=== PATIENT | female | born 1980 | race Asian ===

== ENCOUNTER 2025-08-17 02:20 | Inpatient (IN) | payer SELFPAY ==
[2025-08-17] VITALS (16 sets, daily range): BP systolic 163–198; BP diastolic 96–131; PULSE 76–125; RESP 17–100; TEMP 36.4–37.3; O2SAT 93–100; BMI 35.4; BMI 38.2
--- NOTE | 2025-08-17 | XR_ITS ---
Examinations: MRI Brain without intravenous contrast. MRI brain with intravenous contrast MRA brain with intravenous contrast. MRA brain without intravenous contrast MRA neck with intravenous contrast Date and time of exam: August 17, 2025, 0950 hours INDICATIONS: Stroke alert this AM, onset right-sided body weakness and numbness Technique: Multiple axial and sagittal images of the brain have been obtained Siemens high-resolution 1.5 Natalie short bore scanner is utilized. Sagittal sections, T1-weighted, TR 500, TE 14 Axial sections proton density and T2-weighted, TR 3,000, TE 34, TR 3,000, TE 91 Inversion recovery axial images, TR 9,260, TE 111, TI 2,500 Diffusion weighted images, axial sections, TR 4,800, TE 128, B value 1,000 Axial sections, ADC map, TR 4,800, TE 128. Contrast images have been obtained post intravenous 19 cc Gadolinium. T1-weighted axial and coronal images post contrast have been obtained. Angiographic images of neck and brain are obtained pre and post contrast. 3-D post processing performed, including brain, extracranial neck arterial maximum intensity projections Findings: Sellaturcica is not enlarged. The optic chiasm and infundibular stalk are not remarkable. Prepontine and interpeduncular cisterns are not enlarged. No localized enlargement of the medulla or daina. Fourth ventricle and cerebellar tonsils normal in position. Subacute hemorrhage is not seen. Fourth ventricle is midline. Mass in the cerebellopontine angle region is not evident. 7th and 8th nerve complexes exhibits symmetry. Globes are symmetrical with no retro-orbital mass. Increased white matter signal not seen Diffusion-weighted images demonstrate no focus of restricted diffusion. Mass-effect upon the ventricular system is not identified. Abnormal contrast enhancement is not seen. MRA brain carotid images no carotid stenoses, no cerebral large vessel arterial occlusions Impression: Negative for acute hemorrhage mass effect or midline shift No acute infarct No MR findings diagnostic for demyelinating disease No carotid stenoses No cerebral large vessel arterial occlusions
--- NOTE | 2025-08-17 02:52 | PD.EDRME ---
Rapid Medical Screening Exam RME Arrival date/time: 08/17/25 02:20 Chief Complaint: General Adult/Misc Complain Vital signs: Vital Signs Temperature 99.2 F 08/17/25 02:29 Pulse Rate 125 H 08/17/25 02:29 Respiratory Rate 19 08/17/25 02:29 Blood Pressure 190/131 H 08/17/25 02:29 Pulse Oximetry (%) 96 08/17/25 02:29 Oxygen Delivery Method Room Air 08/17/25 02:29 RME Narrative: 44-year-old healthy female presents to the ER complaining of right sided facial numbness and weakness, as well as right arm and leg numbness and tingling which started an hour prior to arrival. I briefly performed a screening evaluation to initiate work-up and expedite care. Complete history, physical exam, and plan of care is deferred to the provider in the main ED. Exam: Head: Normocephalic, atraumatic. Respiratory: Normal effort. No respiratory distress or accessory muscle use. Neuro: Speech normal. Skin: Warm, dry, normal color. Psych: Pleasant. Normal affect. Cooperative. Clinical Impression: Rule out CVA
--- NOTE | 2025-08-17 02:55 | XR_ITS ---
Examination: CT brain head without contrast. 2-D sagittal coronal reconstructions Date and time of exam: August 17, 2025, 0300 hours INDICATIONS: Onset right-sided body numbness beginning 3 days ago COMPARISON: April 23, 2011 CTDI: vol (mGy): 51.1 DLP: (mGycm): 964 Technique: Multiple CT axial sections of the brain have been obtained, 5 mm slice thickness. Contrast has not been administered. 2-D sagittal, coronal reconstructions have been obtained Low dose protocols were performed. One or more of the following dose reduction techniques were used; automated exposure control, adjustment of the mA and/or KV according to patient size, use of iterative reconstruction technique. Findings: No significant ventricular enlargement. Intra-axial or extra-axial hemorrhage density is not seen. No mass effect or midline shift Basal cisterns are not remarkable. Fourth ventricle is midline. Cranial vault intact. Impression: Negative for acute hemorrhage, mass effect or midline shift As clinically warranted, brain MRI follow-up would best assess for demyelinating disease
--- NOTE | 2025-08-17 02:55 | XR_ITS ---
Examination: CTA carotids with intravenous contrast CTA brain, head with intravenous contrast. 2-D sagittal, coronal reconstructions. 3-D reconstructions. Exam date and time: August 17, 2025, 0310 hours INDICATIONS: Stroke alert, onset right-sided body numbness beginning 3 days ago CTDI: vol (mGy) 11.7 DLP: (mGycm) 448 Technique: Multiple CTA axial brain, head carotid images post intravenous contrast injection 75 cc, Isovue-[id number]. 2-D sagittal, coronal reconstructions. 3-D reconstructions, 3-D post processing including vascular maximum intensity projection images. Low dose protocols were performed. One or more of the following dose reduction techniques were used; automated exposure control, adjustment of the mA and/or KV according to patient size, use of iterative reconstruction technique. Findings: No common carotid carotid bifurcation or internal carotid artery significant stenoses Dominant right vertebral artery in the neck with no critical stenoses No cerebral large vessel arterial occlusions or thrombus IMPRESSION: No significant neck arterial stenoses No cerebral large vessel arterial occlusions or thrombus
--- NOTE | 2025-08-17 02:55 | XR_ITS ---
EXAMINATION: AP chest single view TECHNIQUE: AP portable upright chest single view Date and time: August 17, 2025, 0347 hours, comparison May 30, 2014 INDICATIONS: Stroke alert FINDINGS: Normal heart size No aspiration pneumonia. Lungs are clear. Mild osteopenia. IMPRESSION: Negative for aspiration pneumonia
--- NOTE | 2025-08-17 02:55 | EKG_ITS ---
[facility] Test Date: 2025-08-17 Pat Name: CELESTE DUMONT Department: Room: - Gender: Female Diagram Clerk: : 1980 Requested By: Heriberto Le Order Number: [id number] Reading MD: Heriberto Le Measurements Intervals [place] Rate: 113 P: 38 MN: 112 QRS: 56 QRSD: 89 T: 36 QT: 339 QTc: 466 Interpretive Statements SINUS TACHYCARDIA WITH SHORT MN INTERVAL ABNORMAL RHYTHM ECG No previous ECG available for comparison /store/S0/[id number].pdf
--- NOTE | 2025-08-17 03:14 | EDNOTE_ITS ---
ED General RME/HPI General Chief complaint: General Adult/Misc Complain Stated complaint: RT SIDE NUMBNESS X 3DAYS Time Seen by Provider: 08/17/25 03:09 Arrival date/time: 08/17/25 02:20 RME / HPI RME / HPI narrative: 44-year-old healthy female presents to the ER complaining of right sided facial numbness and weakness, as well as right arm and leg numbness and tingling which started an hour prior to arrival. I briefly performed a screening evaluation to initiate work-up and expedite care. Complete history, physical exam, and plan of care is deferred to the provider in the main ED. Dr. Gordon?s Main ED Evaluation: 44yo female with no significant past medical history presents to the ED for a chief complaint of right-sided weakness and numbness. Patient states her symptoms initially started on Saturday at 0230 when she woke up to use the restroom, reporting her symptoms eventually resolved. Patient states her symptoms returned tonight between [id number] and was concerned, so she came in for evaluation. Patient denies any previous history of HTN. She is not taking any medications. She denies any falls or injuries. Denies any other associated symptoms. NKA. Related Data Home Medications ?Medication ?Instructions ?Recorded ?Confirmed No Known Home Medications 08/05/1803/17 Allergies Allergy/AdvReac Type Severity Reaction Status Date / Time No Known Allergies Allergy Verified 09/16/18 14:31 Review of Systems Review of Systems Systems Reviewed: All systems reviewed, normal except as documented Past Medical History Past Medical History CARDIAC: Negative Cardiac Disorders or Congestive Heart Failure RESPIRATORY: Negative Chronic Obstructive Pulmonary Disease (COPD) or Asthma GENITOURINARY: Negative Renal Disease ENDOCRINE: Negative Diabetes Mellitus Type 1 or Diabetes Mellitus Type 2 HEMATOLOGIC: Negative Sickle Cell Disease Social History SMOKING STATUS: Never smoker ED Exam Narrative Physical exam: Generally the patient is alert and in no obvious distress, face shows no facial asymmetry, eyes pupils equal round and reactive to light, neck showed no bruits, heart regular rate and rhythm without murmur, lungs clear to auscultation equal bilaterally, abdomen soft bowel sounds present nondistended nontender, n eurologic exam shows the patient have 5/5 muscle strength to all extremities however the patient is noticeably weaker on the right when compared to the left. [place] Coma Scale is 15. Course Course Course Narrative: 0251: Stroke alert initiated by the PA. CXR is ordered for determining the etiology of weakness. Quality Measures none Orders Category Date Time Status Bedside Blood Glucose NOW Care 08/17/25 02:55 Active Technical Training Manager NOW Care 08/17/25 02:55 Active Continuous Pulse Oximetry NOW Care 08/17/25 02:55 Completed EKG (ED ONLY) *Do not use* NOW Care 08/17/25 02:55 Completed In and Out Catheter NEEDED Care 08/17/25 02:55 Active Insert IV NOW Care 08/17/25 02:55 Active NIH Stroke Scale now Care 08/17/25 02:55 Active NPO NOW Care 08/17/25 02:55 Active Nurse Swallow Screen x1 Care 08/17/25 02:55 Active Consult to Neurology / Tele-Neurology Routine Cons 08/17/25 02:[address] angio stroke protocol Stat Exams 08/17/25 02:[address] stroke protocol Stat Exams 08/17/25 02:55 Taken EKG (ED Only) Stat Exams 08/17/25 02:55 Draft XR chest 1V portable Stat Exams 08/17/25 02:55 Taken CBC Stat Lab 08/17/25 03:00 Completed Comprehensive Metabolic Panel Stat Lab 08/17/25 03:00 Completed Drug Screen,Urine Stat Lab 08/17/25 03:44 Received HCG Titer if Positive Stat Lab 08/17/25 03:00 Completed Magnesium Stat Lab 08/17/25 03:00 Completed Partial Thromboplastin Time Stat Lab 08/17/25 03:00 Completed Prothrombin Time with INR Stat Lab 08/17/25 03:00 Completed Troponin I Stat Lab 08/17/25 03:00 Completed Urinalysis, C/S if Indicated Stat Lab 08/17/25 03:40 Received Labetalol IV [Trandate IV] Med 08/17/25 02:55 Active 10 mg IVP Q15M PRN Labetalol IV [Trandate IV] Med 08/17/25 03:25 Discontinued 20 mg IVP X1 ONE Ondansetron Inj [Zofran Inj] Med 08/17/25 02:55 Active 4 mg IVP Q4HR PRN Oxygen Delivery NOW RT 08/17/25 02:55 Active Vital Signs Vital signs: Vital Signs Temperature 99.2 F 08/17/25 02:29 Pulse Rate 125 H 08/17/25 02:29 Respiratory Rate 19 08/17/25 02:29 Blood Pressure 190/131 H 08/17/25 02:29 Pulse Oximetry (%) 96 08/17/25 02:29 Oxygen Delivery Method Room Air 08/17/25 02:29 Critical Care Time Critical Care Time Critical Care Time: Yes Total Critical Care Time (min.): 35 Attestation: Excluding other billable procedures Discharge Plan Plan Patient Disposition: Admit Acute Care w/in Hospital Prescriptions/Referrals Prescriptions/Med Rec: No Action No Known Home Medications Referrals: Temporary Provider,ED [Primary Care Provider, Emergency Medicine] - In 1 week Problem List Clinical Impression: Ischemic cerebrovascular accident (CVA), Hypertensive emergency Patient/Caregiver Discharge Instructions Print Language: Sami Stand Alone Forms: [facility] Award Info., Patient Portal Info Letter MDM Narrative MDM hospital course (for use when minimal MDM required): Scribe Attestation: 08/17/25 - Rima Cárdenas am scribing for and in the presence of Dr. Gordon. Symptoms have been on again off again for the last 2 weeks. The most recent start of the right sided weakness with numbness started well over 4-1/2 hours prior to presentation. Patient is not a thrombolytic candidate. Stroke alert was called. Head CT was negative. CT angiogram of the head and neck showed no large vessel occlusion and no aneurysm. Patient is quite hypertensive here in the emergency room with blood pressure in the 190s over 130s range. I discussed this case with the stroke neurologist who recommended getting the diastolic blood pressure down to at least below 120. The systolic blood pressure should be maintained below 220. Patient received labetalol 20 mg IV which brought the blood pressure down to 177/118. Patient will undergo MRI later in the morning. I will discuss his case with the hospitalist and the patient will require admission to hospital for further treatment and evaluation. Patient states that she has no medical problems and was unaware that she had hypertension. Patient will be given aspirin and Plavix here in the emergency room. Clinical Information Provided by: patient Medical Records reviewed [facility] (Per chart review, patient has no relevant previous ED visits.) Meds/Rx considered, not ordered None Labs/Rad/Tests considered, not ordered None Chronic Illness/Social Conditions which may negatively complicate care or outcome(s)-explain: None or not applicable Labs Labs: interpreted by me Imaging Imaging interpretation: interpreted by me Imaging Interpretation(s): Telerad Preliminary Report Draft Patient: CELESTE DUMONT Record#: [id number] Birthdate: 1980 Age/Sex: 44 / F Location: [facility] Attending Dr: Ordering Physician: Date of Service: Procedure(s): Accession Number(s): cc: ~ CT scan of the head without intravenous contrast (axial sections with sagittal and coronal reformats) August 17, 2025 at 0300 hours Clinical History: Focal neuro deficit, stroke suspected. Comparison: None available at the time of this report. Findings: No evidence of intracranial hemorrhage, mass effect or midline shift. The ventricles and CSF spaces are unremarkable. The calvarium is unremarkable. The mastoid air cells and the visualized paranasal sinuses are clear. Impression: No evidence of intracranial hemorrhage, mass effect or midline shift. Aspect score 10. Report Electronically Signed By: Ray Soares 08/17/2025 3:26:33 AM Medication Administration(s) Medication Administration History Labetalol HCl (Labetalol Inj 5 Mg/Ml Vial 20 Ml) 10 mg IVP Q15M PRN PRN Reason: HYPER Ondansetron HCl (Ondansetron Inj 2 Mg/Ml Inj 2 Ml) 4 mg IVP Q4HR PRN PRN Reason: NAUSEA OR VOMITING Stop: 09/16/25 02:54 Discontinued Medications Labetalol HCl (Labetalol Inj 5 Mg/Ml Vial 20 Ml) 20 mg IVP X1 ONE Stop: 08/17/25 03:26 Last Admin: 08/17/25 03:30 Dose: 20 mg Documented By: JONNIE see above Diagnosis Differential Diagnosis ED Complaint MDM: See MDM
--- NOTE | 2025-08-17 03:14 | PD.TNEURO ---
Tele Neuro Consultation Consultation Date 08/17/25 Most Recent Vital Signs Last Vital Signs Temp 98.1 F 08/17/25 03:04 Pulse 110 H 08/17/25 03:10 Resp 18 08/17/25 03:10 BP 198/119 H 08/17/25 03:04 Pulse Ox 100 08/17/25 03:04 O2 Del Method Room Air 08/17/25 03:04 Consultation Narrative [facility] Patient Name:???Singh Gillette Date of :???1980 Identification Number:??? Date of Service:???08/17/2025 02:52:28 Diagnosis:?R44.8 - Other and unspecified symptoms and signs involving general sensations and perceptions Impression: ?44 yo F who presents with right sided numbness and right facial weakness. CT head personally reviewed and does not show hemorrhage or definitive acute developing ischemic stroke. Outside window for thrombolytics. CTA head/neck pending. Differential for presentation would include acute ischemic stroke, hypertensive emergency and migraine with aura also could be playing a role. Pending acute abn's on CTA, would admit for further workup of most likely to be acute stroke vs hypertensive emergency as follows: Our recommendations are outlined below. Recommendations: ? Stroke/Telemetry Floor ? Neuro Checks (Q4) ? Bedside Swallow Eval ?-f/u CTA head/neck ?-frequent neuro checks/vitals during admission ?-Goal blood pressure less than 220/120 for now ? --if symptoms persist and MRI negative - would treat BP with goal of 110-160 at that point ?-Euglycemia and Avoid Hyperthermia (PRN Acetaminophen) ?-obtain MRI brain w/ and w/o contrast (routine) ?-obtain Lipid panel, Hb A1c, TTE with bubble study ?-Place on telemetry ?-Bolus with Clopidogrel 300 mg bolus x1 and initiate dual antiplatelet therapy with Aspirin 81 mg daily and Clopidogrel 75 mg daily ?-Start atorvastatin 40 mg po qhs ?-dvt ppx per primary team ?-trial migraine cocktail as follows: ? --IV Compazine 10 mg ? --IV benadryl 25 mg ? --IV magnesium 2 g ? --IVF bolus per ED physician ?-PT/OT/ST consults - inpatient rehab if recommended ?-Please notify neurology immediately for change in exam Sign Out: ? Discussed with Emergency Department Provider Advanced Imaging:Advanced imaging has been ordered. Results pending. Metrics: Last Known Well: 08/16/2025 21:00:00 Arrival Time: 08/17/2025 02:20:00 Activation Time: 08/17/2025 02:52:28 Initial Response Time: 08/17/2025 02:54:10Symptoms: right facial weakness and right sided numbness. Initial patient interaction: 08/17/2025 02:58:00 NIHSS Assessment Completed: 08/17/2025 03:05:52Patient is not a candidate for Thrombolytic. Thrombolytic Medical Decision: 08/17/2025 03:05:52Patient was not deemed candidate for Thrombolytic because of following reasons: LKW outside 4.[address] Head: I personally reviewed all the CT images that were available to me and it showed: CT head personally reviewed and does not show hemorrhage or definitive acute developing ischemic stroke Primary Provider Notified of Diagnostic Impression and Management Plan on: 08/17/2025 03:13:40 History of Present Illness:Patient is a 44 year old Female. Patient was brought by private transportation with symptoms of right facial weakness and right sided numbness. 44 yo F who presents with right sided numbness and right facial weakness. Per report, patient has had right side weakness since Saturday. Patient she got up to use the restroom on Saturday morning (at about 3 am) and noted right sided numbness/tingling. No weakness noted at that time. Symptoms went away on Saturday, felt to back normal until about 9 to 10 pm tonight when numbness of face/arm/leg on right side came back. [place] a little weak in right leg as well. No loss of vision or double vision currently. No speech changes per patient. Has had headaches the last 2 days but not at current moment. ? Past Medical History: ?Migraine Headaches ?There is no history of Hypertension ?There is no history of Diabetes Mellitus ?There is no history of Atrial Fibrillation ?There is no history of Stroke Other PMH:? no hx of migraine with aura per patient, has regular migraines though Medications: No Anticoagulant use? No Antiplatelet use Reviewed EMR for current medications Allergies:? Reviewed Social History: Smoking: No Family History: There Is Family History Of:mother with hx of stroke ROS : 14 Points Review of Systems was performed and was negative except mentioned in HPI. ? ? Examination: BP(190/131),?Pulse(125),?Blood Glucose(105) 1A: Level of Consciousness - Alert; keenly responsive?+ 0 1B: Ask Month and Age - Both Questions Right?+ 0 1C: Blink Eyes & Squeeze Hands - Performs Both Tasks?+ 0 2: Test Horizontal Extraocular Movements - Normal?+ 0 3: Test Visual Miranda - No Visual Loss?+ 0 4: Test Facial Palsy (Use Grimace if Obtunded) - Normal symmetry?+ 0 5A: Test Left Arm Motor Drift - No Drift for 10 Seconds?+ 0 5B: Test Right Arm Motor Drift - No Drift for 10 Seconds?+ 0 6A: Test Left Leg Motor Drift - No Drift for 5 Seconds?+ 0 6B: Test Right Leg Motor Drift - No Drift for 5 Seconds?+ 0 7: Test Limb Ataxia (FNF/[place]el[place]) - No Ataxia?+ 0 8: Test Sensation - Normal; No sensory loss?+ 0 9: Test Language/Aphasia - Normal; No aphasia?+ 0 10: Test Dysarthria - Normal?+ 0 11: Test Extinction/Inattention - No abnormality?+ 0 NIHSS Score:?0 NIHSS Free Text :?keeps both legs up without drift at 5 seconds but requires more effort to keep up without drift with right leg Pre-Morbid Modified Shannan Scale: 0 Points = No symptoms at all Spoke with :?ED provider Dr. Gordon This consult was conducted in real time using interactive audio and video technology. Patient was informed of the technology being used for this visit and agreed to proceed. Patient located in hospital and provider located at home/office setting. Patient is being evaluated for possible acute neurologic impairment and high probability of imminent or life-threatening deterioration. I spent total of 25 minutes providing care to this patient, including time for face to face visit via telemedicine, review of medical records, imaging studies and discussion of findings with providers, the patient and/or family. Dr Darien Solorio [facility] For Inpatient follow-up with [facility] physician please call [facility] at . As we are not an outpatient service for any post hospital discharge needs please contact the hospital for assistance. If you have any questions for the [facility] physicians or need to reconsult for clinical or diagnostic changes please contact us via [facility] at . Non-radiologist review of imaging performed to assist with emergent clinical decision-making. Remote physician workstations do not possess the same resolution, calibration, or diagnostic capabilities as hospital-based radiology reading stations, and formal radiologist read is necessary. Signature :Nathen Solorio ?
[2025-08-17 03:20] LABS: Basophils # (Auto) 0.1 Thou/mm3 (0.0-0.2); Basophils % (Auto) 1 % (0-2.5); Eosinophils # (Auto) 0.7 Thou/mm3 (0.0-0.5); Eosinophils % (Auto) 5 % (0-10); Hematocrit 39.4 % (36.0-46.0); Hemoglobin 11.6 g/dL (12.0-16.0); Immature Granulocytes Auto 0.06 Thou/mm3 (0.00-0.00); Lymphocytes # (Auto) 2.6 Thou/mm3 (1.0-4.8); Lymphocytes % (Auto) 20 % (10-50); Mean Corpuscular HGB Conc 29.4 g/dl (31.0-37.0); Mean Corpuscular Hemoglobin 20.4 pg (25.0-35.0); Mean Corpuscular Volume 69 fL (80-100); Monocytes # (Auto) 0.9 Thou/mm3 (0.0-0.8); Monocytes % (Auto) 7 % (0-12); Neutrophils # (Auto) 8.9 Thou/mm3 (1.8-7.7); Neutrophils % (Auto) 67 % (37-80); Nucleated Red Blood Cell # 0.00 Thou/mm3 (0.00-0.00); Nucleated Red Blood Cell % 0 /100 WBC (0); Platelet Count 394 Thou/mm3 (140-440); RDW Standard Deviation 41.1 fL (36.4-46.3); Red Blood Count 5.68 Miln/mm3 (4.00-5.20); White Blood Count 13.3 Thou/mm3 (3.6-11.0)
[2025-08-17 03:25] LABS: INR 0.9 (0.9-1.3); Partial Thromboplastin Time 29.9 Seconds (22.0-36.0); Prothrombin Time 10.1 Seconds (9.0-12.2)
--- NOTE | 2025-08-17 03:27 | PRELIM_ITS ---
CT scan of the head without intravenous contrast (axial sections with sagittal and coronal reformats) August 17, 2025 at 0300 hours Clinical History: Focal neuro deficit, stroke suspected. Comparison: None available at the time of this report. Findings: No evidence of intracranial hemorrhage, mass effect or midline shift. The ventricles and CSF spaces are unremarkable. The calvarium is unremarkable. The mastoid air cells and the visualized paranasal sinuses are clear. Impression: No evidence of intracranial hemorrhage, mass effect or midline shift. Aspect score 10. Report Electronically Signed By: Ray Soares 08/17/2025 3:26:33 AM [EST]
[2025-08-17] MEDS: LABETALOL INJ 5 MG/ML VIAL 20 ML 20 MG IVP (03:30)
[2025-08-17 03:39] LABS: HCG Titer if Positive Negative
[2025-08-17 03:56] LABS: Collection Type, Urine Voided
[2025-08-17 03:57] LABS: Alanine Aminotransferase 11 U/L (10-49); Albumin, Serum 4.4 gm/dL (3.5-5.0); Albumin/Globulin Ratio 1.5 (1.2-2.2); Alkaline Phosphatase 113 U/L (46-116); Anion Gap 9 (7-16); Aspartate Amino Transferase 17 U/L (0-34); BUN/Creatinine Ratio 9 Ratio (12-20); Bilirubin,Total < 0.2 mg/dL (0.3-1.2); Blood Urea Nitrogen 9 mg/dL (9-23); Calcium 8.7 mg/dL (8.3-10.6); Calcium (Corrected) 8.7 mg/dL (8.5-10.1); Carbon Dioxide 24.6 mMol/L (20.0-31.0); Chloride 110 mMol/L (98-107); Creatinine (Component) 1.0 mg/dL (0.6-1.3); Estimated Creatinine Clearance 77.6 mL/min (>60); Globulin 2.9 gm/dL (2.3-3.5); Glucose 118 mg/dL (74-106); Magnesium 1.8 mg/dL (1.6-2.6); Osmolality,Calculated 286 (275-295); Potassium 3.4 mMol/L (3.4-5.1); Sodium 144 mMol/L (136-145); Total Protein 7.3 gm/dL (5.7-8.2); Troponin I < 0.020 ng/mL (0.0-0.045); eGFR > 60 See Note
--- NOTE | 2025-08-17 04:03 | PRELIM_ITS ---
CT angiogram of the head and neck with intravenous contrast (axial sections with sagittal and coronal reformats) August 17, 2025 0310 hours Clinical History: Focal neuro deficit, stroke suspected. Comparison: CT of August 17, 2025. Findings: Head: The internal carotid, middle and anterior cerebral arteries are patent bilaterally. The intracranial vertebral arteries are patent. The vertebrobasilar junction, basilar and posterior cerebral arteries are patent. No evidence of large vessel occlusion, critical stenosis or aneurysm. Neck: The aortic arch to the extent visualized as well as the origins of the right brachiocephalic, left common carotid, and left subclavian arteries are patent. The common carotid arteries, carotid bulbs, and internal and external carotid arteries are patent. The origins of the vertebral arteries are unremarkable. The right vertebral artery is dominant. No evidence of vascular occlusion, critical stenosis, dissection or aneurysm. The soft tissues of the neck are unremarkable. No acute fractures. Loss of the physiologic cervical lordosis. Impression: Head: No evidence of large vessel occlusion, critical stenosis or aneurysm. Neck: No evidence of vascular occlusion, critical stenosis, dissection or aneurysm. Discussion Details: Results verbally communicated to : Dr. Gordon at 03:56 AM 08/17/2025 Report Electronically Signed By: Ray Soares 08/17/2025 4:03:18 AM [EST]
[2025-08-17 04:10] LABS: Bilirubin,Urine Negative (Negative); Blood,Urine 3+ (Negative); Clarity,Urine Clear (Clear/Hazy); Color,Urine Colorless (Lt Yel-Yel); Culture Indicated,Urine Not Indicated; Glucose, Urine Negative (Negative); Ketones,Urine Negative (Negative); Leukocyte Esterase,Urine Positive (Negative); Nitrite,Urine Negative (Negative); PH,Urine 7.5 (5.0-7.0); Protein,Urine Trace (Neg - Trace); RBC,Urine 685 /hpf (0-3); Squamous Epithelial Cell,Urine 7 /hpf (0-5); Urobilinogen,Urine Negative mg/dL (0.0-1.0); WBC,Urine 8 /hpf (0-5)
[2025-08-17 04:11] LABS: Specific Gravity,Urine > 1.035 (1.001-1.035)
[2025-08-17 04:11] LABS: Amphetamine/Methamp Scrn,U Negative (Negative); Barbiturate Screen,Urine Negative (Negative); Benzodiazepines Screen,Urine Negative (Negative); Benzoylecgonine Screen, Ur Negative (Negative); Fentanyl Screen,Urine Negative (Negative); Opiate Screen,Urine Negative (Negative); THC Screen,Urine Negative (Negative)
[2025-08-17] MEDS: CLOPIDOGREL BISULFATE 75 MG TABLET PO ×2 (04:18→08:24)
--- NOTE | 2025-08-17 05:11 | ECHO_ITS ---
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 Saline: Agitated Saline Amount: --- ml Primary Location: [facility] Left Ventricular Outflow Tract Name Value Normal LVOT 2D LVOT Diameter 1.9 cm LVOT Doppler LVOT Peak Velocity 142 cm/s LVOT Mean Gradient 4 mmHg LVOT VTI 27 cm LVOT VTI/AV VTI Ratio 0.8 LVOT Stroke Volume 78 ml Pulmonic Valve Name Value Normal PV Doppler PV Peak Velocity 102 cm/s Mitral Valve Name Value Normal MV Doppler MV Decel [place] 871 cm/s2 MV PHT 38 ms MV Area (PHT) 5.8 cm2 4.0-5.0 MV Diastolic Function MV E Peak Velocity 114 cm/s MV A Peak Velocity 105 cm/s MV E/A 1.1 MV Annular TDI MV Septal e' Velocity 8.8 cm/s MV E/e' (Septal) 12.9 MV Lateral e' Velocity 10.3 cm/s MV E/e' (Lateral) 11.1 MV e' Average 9.56 cm/s MV E/e' (Average) 12.0 Tricuspid Valve Name Value Normal TV Regurgitation Doppler TR Peak Velocity 176 cm/s Estimated PAP/RSVP RA Pressure 3 mmHg <=5 PA Systolic Pressure 15 mmHg <36 RV Systolic Pressure 15 mmHg <36 Aortic Valve Name Value Normal AV 2D/MM AV Cusp Sep (MM) 1.3 cm AV Doppler AV Peak Velocity 154 cm/s AV Mean Gradient 6 mmHg AV VTI 33 cm AV Area (Cont Eq VTI) 2.3 cm2 >=3.0 AV Area (Cont Eq Sudeep) 2.6 cm2 AV DI (Sudeep) 0.92 AV Regurgitation 2D LVOT Area 2.8 cm2 Ventricles Name Value Normal LV Dimensions 2D/MM IVS Diastolic Thickness (2D) 0.9 cm 0.6-0.9 LVID Diastole (2D) 3.8 cm 3.8-5.2 LVIW Diastolic Thickness (2D) 0.9 cm 0.6-0.9 LVID Systole (2D) 2.3 cm 2.2-3.5 LVOT Diameter 1.9 cm LV Mass (2D Cubed) 101.06 g 67.00-162.00 LV Mass Index (2D Cubed) 49 g/m2 43-95 Relative Wall Thickness (2D) 0.47 <=0.42 IVS/LVIW Diastolic Thickness (2D) 1.00 0.00-1.50 LV Fractional Shortening/Ejection Fraction 2D/MM LV Fractional Shortening (2D) 39 % 27-45 LV EF (2D Teichholz) 71 % Atria Name Value Normal LA Dimensions LA Volume (4C A-L) 54 ml LA Volume (BP A-L) 49 ml Left Ventricle Left ventricular chamber dimension is normal. Left ventricular systolic function is normal with visually estimated ejection fraction of 60-65%. There is concentric remodeling noted in the left ventricle. Left ventricular segmental wall motion is normal. There is normal diastolic function in the left ventricle. Right Ventricle Right ventricular chamber dimension is normal. Right ventricular systolic function is normal. Left Atrium Left atrial chamber dimension is normal. Right Atrium Right atrial chamber dimension is normal. Aortic Valve The aortic valve is trileaflet. There is no aortic valve sclerosis. There is no aortic valve stenosis with a peak velocity of 154 cm/s, mean gradient of 6 mmHg, and aortic valve area of 2.3 cm2. There is no aortic valve regurgitation. Pulmonic Valve The pulmonic valve is normal. There is no pulmonic valve stenosis. There is no pulmonic regurgitation. Mitral Valve The mitral valve has normal leaflets. There is no mitral valve stenosis. There is no mitral valve regurgitation. Tricuspid Valve The tricuspid valve leaflets are normal. There is no tricuspid valve stenosis. There is trace tricuspid valve regurgitation. No pulmonary hypertension, estimated pulmonary arterial systolic pressure is 15 mmHg and systemic blood pressure of 166 mmHg in systole. Pericardium/Pleural The pericardium appears normal. There is no pericardial effusion. No pleural effusion visualized. Inferior Vena Cava Normal inferior vena cava with >50% collapse upon inspiration consistent with normal right atrial pressure, 3 mmHg. Aorta The aortic measurements are indexed to age and body surface area. The aortic root at the sinus of Valsalva is not well visualized. The prox ascending aorta is not well visualized. Summary 1. Left ventricle size is normal and systolic function is normal. Estimated ejection fraction is 60-65%. There is normal diastolic function. 2. Right ventricle chamber size is normal and systolic function is normal. Estimated RVSP is 15 mmHg. 3. There is trace tricuspid valve regurgitation. 4. Normal IVC with estimated RA pressure 3 mmHg. 5. Negative bubble study. Report Signatures Finalized by Mirna Otero on 08/17/2025 05:10 PM
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
[2025-08-17] MEDS: Magnesium Sulfate 2 GM Ivpb 2 GM/50 ML BAG IV (05:43)
[2025-08-17 06:20] LABS: Free T4 (Free Thyroxine) 1.04 ng/dL (0.89-1.76)
[2025-08-17] MEDS: ATORVASTATIN CALCIUM 10 MG TABLET 40 MG PO (08:23)
[2025-08-17] MEDS: DOCUSATE SOD 100 MG CAPSULE PO (08:24)
[2025-08-17] MEDS: PANTOPRAZOLE 40 MG TABLET PO (08:24)
--- NOTE | 2025-08-17 08:44 | PC.CC ---
0730-ASW completed an initial assessment with the pt at bedside. Pt reported she is her own Decision Maker, but in the event she is unable to make decision on her own, her sister Blanca Gillette [phone] will be her surrogate decision maker. Pt reported her PCP is LACIE Espino at [facility], does not see a specialty provider and her pharmacy of choice is [facility]. Pt reported she will return home once she is ready for d/c. Pt reports she does not have insurance and is a self pay. Pt will need assistance with presumptive medi-carlo process. Pt is willing to also apply to [facility] as well. Pt reports she does her own ADLs and does not use DME nor O2. Pt reports she has strong family support at home and resides with her sister and family. Pt reports she is a Full Code. Pts sister will provide transportation once ready for d/c. PCP-LACIE Espino [facility] Code- Full Code Surrogate Decision Maker-sister Blanca Gillette [phone] D/c plan: return home Transportation: Blanca Gillette [phone]
--- NOTE | 2025-08-17 11:05 | PC.NURSE ---
Hand off report given to Blessing ACOSTA from Med surg. Patient is aware of transfer to floor. All belongings gathered and sent with patient after MRI was completed. Pt had some tingling reported to right foot but no other complaints. Pt able to walk without any assistance, swallows well, VSS, bp slightly elevated per Doctors orders for labetalol is bp above 220/120. Neuro checks are normal.
--- NOTE | 2025-08-17 11:33 | PC.NURSE ---
DR. TREJO MADE AWARE OF PTS BP 181/118 CONTINUE WITH PERMISSIVE HTN. NO NEW ORDERS.
--- NOTE | 2025-08-17 15:56 | ESPR_ITS ---
<Statement entered by Fish Groves MD - 08/19/25 05:35> Patient was seen and examined at bedside. I agree on the assessment and plan on this note as documented by resident Dr Thomas Sanchez DO PGY1. 44-year-old female with past medical history as below admitted overnight for CVA workup, MRI negative for acute infarct, echocardiogram pending. Patient will be started on losartan 50 mg daily for blood pressure control as patient does not have CVA, patient's underlying symptoms likely secondary to hypertensive emergency, patient noted to have gross hematuria, patient confirms she is currently on her menstrual cycle which is likely the cause of the sample. Will continue to titrate blood pressure medication, anticipate discharge in the next 24 hours Case discussed with attending Dr. Shanthi Groves MD PGY-2 Documentation for date of: 08/17/25 Subjective Subjective Interval history: Patient states that she felt global bilateral paresthesia and weakness when she woke up at 0230 on Saturday to use the bathroom, sxs which went away in a few hours. Yesterday night, her symptoms re-emerged, however, they were present only on her Rt side. Denies nausea, dizziness, diplopia, loss of balance, motor deficits or slurring of words. She denies falls or injuries. Related to her hypertension, she states that she did not check her BP or take meds for it as she was unaware of HTN. She denies headaches, nausea, vomiting, epistaxis, tinnitus, SOB, or blurry vision. Exam Vital Signs Temp Pulse Resp BP Pulse Ox O2 Del Method 97.5 F 87 19 175/107 H 96 Room Air 08/17/25 12:00 08/17/25 12:30 08/17/25 12:00 08/17/25 12:00 08/17/25 12:00 08/17/25 12:00 Narrative Exam GENERAL APPEARANCE: AOx3. NAD, activity normal for age, well developed/ well nourished, no cyanosis, pallor, or diaphoresis. HEENT: Normocephalic atraumatic, no facial trauma, neck is supple. Lids/conjunctiva normal. Mucous membranes moist, nares normal, lips/teeth normal uvula midline without oral pharyngeal erythema, exudate or swelling TMs normal bilaterally. No lymphangitis/lymphedema. CARDIAC: Regular rate and rhythm, S1+S2 heard. No murmurs, rubs, or gallops noted RESPIRATORY: respiratory effort normal, speaks in full sentences, no tripod position, no accessory muscle use. Lungs clear to auscultation without rhonchi, wheezes, rales ABDOMINAL: NBS. Soft, ND/NT. No evidence of fluid wave. No pulsatile masses on exam, rebound tenderness, Ojeda sign or pain over Mcburney's point. MUSCLES/EXTREMITIES: No abnormal range of motion, no swelling. DERM: Warm, pink and dry. No rashes, dermatoses, petechiae or lesions. NEUROLOGICAL: Speech is clear and appropriate. Normal level of consciousness. Gait and coordination are normal. 5/5 strength in all extremities. NIHSS: 0, reports numbness but no sensory change bilaterally on palpation. CN1-12 grossly intact. No focal neurological deficits. PSYCH: Normal mood and affect. Judgement/competence is appropriate Objective Labs 08/18/25 04:24 08/18/25 04:24 Labs: Laboratory Results - last 24 hr 08/17/25 08/17/25 08/17/25 03:00 03:00 03:40 WBC 13.3 H RBC 5.68 H Hgb 11.6 L Hct 39.4 MCV 69 L MCH 20.4 L MCHC 29.4 L RDW Std Deviation 41.1 Plt Count 394 Neut % (Auto) 67 Lymph % (Auto) 20 Humphreys % (Auto) 7 Eos % (Auto) 5 Baso % (Auto) 1 Neut # (Auto) 8.9 H Lymph # (Auto) 2.6 Humphreys # (Auto) 0.9 H Eos # (Auto) 0.7 H Baso # (Auto) 0.1 Immature Gran # (Auto) 0.06 H Absolute Nucleated RBC 0.00 Immature Gran % 1 H Nucleated RBC % 0 PT 10.1 INR 0.9 APTT 29.9 Sodium 144 Potassium 3.4 Chloride 110 H Carbon Dioxide 24.6 Anion Gap 9 BUN 9 Creatinine 1.0 Estim Creat Clear Calc 77.6 eGFR > 60 BUN/Creatinine Ratio 9 L Glucose 118 H Calculated Osmolality 286 Calcium 8.7 Corrected Calcium 8.7 Magnesium 1.8 Total Bilirubin < 0.2 L AST 17 ALT 11 Alkaline Phosphatase 113 Troponin I < 0.020 Total Protein 7.3 Albumin 4.4 Globulin 2.9 Albumin/Globulin Ratio 1.5 Free T4 1.04 Cancelled Ur Collection Type Voided Urine Color Colorless A Urine Clarity Clear Urine pH 7.5 H Ur Specific [place] > 1.035 H Urine Protein Trace Urine Glucose (UA) Negative Urine Ketones Negative Urine Blood 3+ A Urine Nitrite Negative Urine Bilirubin Negative Urine Urobilinogen (Auto) Negative Ur Leukocyte Esterase Positive Urine RBC 685 H Urine WBC 8 H Ur Squamous Epith Cells 7 H Urine Bacteria None Ur Culture Indicated? Not Indicated Urine Opiates Screen Urine Fentanyl Screen Ur Barbiturates Screen U Amphetamin/Meth Scrn U Benzodiazepines Scrn U Cocaine Metab Screen U Marijuana (THC) Screen HCG (Qual) Negative 08/17/25 03:44 WBC RBC Hgb Hct MCV MCH MCHC RDW Std Deviation Plt Count Neut % (Auto) Lymph % (Auto) Humphreys % (Auto) Eos % (Auto) Baso % (Auto) Neut # (Auto) Lymph # (Auto) Humphreys # (Auto) Eos # (Auto) Baso # (Auto) Immature Gran # (Auto) Absolute Nucleated RBC Immature Gran % Nucleated RBC % PT INR APTT Sodium Potassium Chloride Carbon Dioxide Anion Gap BUN Creatinine Estim Creat Clear Calc eGFR BUN/Creatinine Ratio Glucose Calculated Osmolality Calcium Corrected Calcium Magnesium Total Bilirubin AST ALT Alkaline Phosphatase Troponin I Total Protein Albumin Globulin Albumin/Globulin Ratio Free T4 Ur Collection Type Urine Color Urine Clarity Urine pH Ur Specific [place] Urine Protein Urine Glucose (UA) Urine Ketones Urine Blood Urine Nitrite Urine Bilirubin Urine Urobilinogen (Auto) Ur Leukocyte Esterase Urine RBC Urine WBC Ur Squamous Epith Cells Urine Bacteria Ur Culture Indicated? Urine Opiates Screen Negative Urine Fentanyl Screen Negative Ur Barbiturates Screen Negative U Amphetamin/Meth Scrn Negative U Benzodiazepines Scrn Negative U Cocaine Metab Screen Negative U Marijuana (THC) Screen Negative HCG (Qual) Quality Measures Quality Measures none Assessment & Plan Assessment Current Active Medications: Generic Name Dose Route Start Last Admin Trade Name Freq PRN Reason Stop Dose Admin Acetaminophen 650 mg 08/17/25 05:00 Acetaminophen 325 Mg Tablet PO 09/16/25 04:59 Q6H PRN Fever >100.4 or pain 1-3 Aspirin 81 mg 08/17/25 05:13 Aspirin Ec 81 Mg Tabec PO 09/16/25 05:12 PRN PRN Stroke Atorvastatin Calcium 40 mg 08/17/25 09:00 08/17/25 08:23 Atorvastatin Calcium 10 Mg Tablet PO 09/16/25 08:59 40 mg QDAY RAMONA Administration Clopidogrel Bisulfate 75 mg 08/17/25 09:00 08/17/25 08:24 Clopidogrel Bisulfate 75 Mg Tablet PO 09/16/25 08:59 75 mg QDAY RAMONA Administration Docusate Sodium 100 mg 08/17/25 09:00 08/17/25 08:24 Docusate Sod 100 Mg Capsule PO 09/16/25 08:59 100 mg QDAY RAMONA Administration Protocol Labetalol HCl 10 mg 08/17/25 05:31 Labetalol Inj 5 Mg/Ml Vial 20 Ml IVP 09/16/25 05:30 Q4HR PRN SBP>220 DBP >120 Ondansetron HCl 4 mg 08/17/25 05:05 Ondansetron Inj 2 Mg/Ml Inj 2 Ml IVP 09/16/25 05:04 Q6H PRN NAUSEA OR VOMITING Protocol Pantoprazole Sodium 40 mg 08/17/25 09:00 08/17/25 08:24 Pantoprazole 40 Mg Tablet PO 09/16/25 08:59 40 mg QDAY RAMONA Administration Plan 44yo female with past medical history migraines, and hypothyroidism presents to the ED for a chief complaint of right-sided weakness and numbness. Patient states her symptoms initially started on Saturday at 0230 when she woke up to use the restroom, reporting her symptoms eventually resolved. Patient states her symptoms returned tonight between [id number] and was concerned, so she came in for evaluation. Patient admitted for HTN emergency, migraine, and stroke r/o. #Hypertensive emergency #Paresthesia Ddx Unmedicated HTN, migraine, noncompliance hypothyroidism, stroke Patient presented with elevated BP 190/131 HR 125 with signs of end organ damage of blood in urine UA colorless pH 7.5 ur sp gravity >1.035 blood +3, leukocyte esterase + RBC 685 WBC 8 Sq epithelial 7. Received labetalol in ED downtrended BP to 177/96. Teleneuro consulted and recommended MRI in AM. ? CT head was nesgative for acute hemorrhage, mass effect, or midline shift. ? Brain MRI showed No acute infarct. No carotid stenoses, LVO's. No demyelinating disease. ? CTA head/neck was negative for significant neck arterial stenoses, LVO's, or thrombi ? EKG NSR ? Echo (TTE) showed normal LV and RV size and function (EF 60-65%). Trace tricuspid valve regurgitation. Negative bubble study. Plan: - Started Losartan 50mg Qday Teleneuro recs: - BP with goal of 110-160 at that point - Neuro Checks (Q4) - Euglycemia and Avoid Hyperthermia (PRN Acetaminophen) - follow up on Lipid panel, Hb A1c, TSH - Place on telemetry - Start atorvastatin 40 mg po qhs - Discontinued clopidogrel and aspirin - Labetalol 10mg IVP Q4hr PRN for 220/120 - PT/OT/ST consults - inpatient rehab if recommended #Hx of hypothyroidism Patient not taking thyroid meds and is unsure of dose. #Hx of migraines Presntation very similar to past migraines per patient. Not currently treating it with prescription medication. Only OTCs Plan: -FUP symptoms -Tx per neuro recs. ??Trial migraine cocktail as follows: ??--IV Compazine 10 mg ??--IV benadryl 25 mg ??--IV magnesium 2 g ??--IVF bolus per ED physician Health Maintenance: Code status: Full DVT prophylaxis: SCDs GI prophylaxis: Protonix Diet: Regular Guillen: None Lines: PIV Supplemental O2: None Disposition: Telemetry for mgmt of hypertensive emergency This case was discussed with my attending physician, Dr. Abdullahi, and senior resident, Dr Groves. Thomas Sanchez, DO PGY I Disclaimer: This note was dictated by speech recognition. Minor errors in program attendant may be present due to voice recognition software. Attending Provider Attestation/Addendum I have seen and examined the patient. I was physically present for the astudillo portions of the services provided including history, physical exam, diagnosis, treatment plans and orders. I agree with assessment and plan of care as documented by residents. Patient is seen and examined at bedside this morning. She is a 44 years old female with past medical history of migraines and hypothyroidism who presented with right-sided weakness and numbness. Was admitted overnight for management of hypertensive emergency, numbness to rule out CVA. This morning at bedside, patient denied any complaints. Her weakness and numbness on right side has completely resolved. Vital signs were stable except for hypertension, we will allow permissive hypertension for 24 hours. Lab results show WBC of 13.3, hemoglobin 11.6. Chemistry panel, grossly nonconcerning. Patient underwent MRI head/brain which was negative for acute infarct. CT head and CTA head/neck were negative as well. Passed swallow evaluation. Patient has history of migraine but only takes [id number] medications. Awaiting echocardiography and neurology recommendations. Even though this this note was carefully revised there may still be minor errors in program attendant due to voice recognition software. Shanthi Abdullahi MD
[2025-08-17] MEDS: LOSARTAN POTASSIUM 25 MG TABLET 50 MG PO (16:48)
--- NOTE | 2025-08-17 18:28 | ESPR_ITS ---
Documentation for date of: 08/17/25 Subjective Subjective Interval history: Patient seen today at the bedside found awake, alert, orientedx3. No overnight events reported. Vital signs and labs reviewed. She states her symptoms resolved after being given BP meds in the ER. No focal deficits noted on physical exam motor function, coordination and sensation intact. She states she has prior history of pre-eclampsia other than that does not recall any prior history of HTN and wasnt on any medications. Symptoms likely secondary to HTN urgency/emergency rather than acute stroke as imaging is negative for any acute infarct. Recommend to continue with aspirin 81mg and statin therapy. Exam Vital Signs Temp Pulse Resp BP Pulse Ox O2 Del Method 98.2 F 94 17 184/124 H 96 Room Air 08/17/25 16:49 08/17/25 16:49 08/17/25 16:49 08/17/25 16:49 08/17/25 16:49 08/17/25 16:49 Narrative Exam Physical Exam GENERAL: NAD, AAOx3 HEENT: Moist mucosa. Eyes open, symmetrical, & clear CARDIO: Heart RRR, no obvious murmurs PULM: No noted coughing/dyspnea CTA B/L, no R/W/R GI: Abdomen soft, nondistended, no pain on palpation. BSx4 SKIN/MSK/EXT: No wounds/rashes/edema/amputations, no pain on palpation. Pedal pulses present B/L NEURO: AAOx3, no focal neuro deficits, able to move all 4 extremities Objective Labs 08/18/25 04:24 08/18/25 04:24 Labs: Laboratory Results - last 24 hr 08/17/25 08/17/25 08/17/25 03:00 03:00 03:40 WBC 13.3 H RBC 5.68 H Hgb 11.6 L Hct 39.4 MCV 69 L MCH 20.4 L MCHC 29.4 L RDW Std Deviation 41.1 Plt Count 394 Neut % (Auto) 67 Lymph % (Auto) 20 [place]oval % (Auto) 7 Eos % (Auto) 5 Baso % (Auto) 1 Neut # (Auto) 8.9 H Lymph # (Auto) 2.6 [place] # (Auto) 0.9 H Eos # (Auto) 0.7 H Baso # (Auto) 0.1 Immature Gran # (Auto) 0.06 H Absolute Nucleated RBC 0.00 Immature Gran % 1 H Nucleated RBC % 0 PT 10.1 INR 0.9 APTT 29.9 Sodium 144 Potassium 3.4 Chloride 110 H Carbon Dioxide 24.6 Anion Gap 9 BUN 9 Creatinine 1.0 Estim Creat Clear Calc 77.6 eGFR > 60 BUN/Creatinine Ratio 9 L Glucose 118 H Calculated Osmolality 286 Calcium 8.7 Corrected Calcium 8.7 Magnesium 1.8 Total Bilirubin < 0.2 L AST 17 ALT 11 Alkaline Phosphatase 113 Troponin I < 0.020 Total Protein 7.3 Albumin 4.4 Globulin 2.9 Albumin/Globulin Ratio 1.5 Free T4 1.04 Cancelled Ur Collection Type Voided Urine Color Colorless A Urine Clarity Clear Urine pH 7.5 H Ur Specific [place] > 1.035 H Urine Protein Trace Urine Glucose (UA) Negative Urine Ketones Negative Urine Blood 3+ A Urine Nitrite Negative Urine Bilirubin Negative Urine Urobilinogen (Auto) Negative Ur Leukocyte Esterase Positive Urine RBC 685 H Urine WBC 8 H Ur Squamous Epith Cells 7 H Urine Bacteria None Ur Culture Indicated? Not Indicated Urine Opiates Screen Urine Fentanyl Screen Ur Barbiturates Screen U Amphetamin/Meth Scrn U Benzodiazepines Scrn U Cocaine Metab Screen U Marijuana (THC) Screen HCG (Qual) Negative 08/17/25 03:44 WBC RBC Hgb Hct MCV MCH MCHC RDW Std Deviation Plt Count Neut % (Auto) Lymph % (Auto) [place] % (Auto) Eos % (Auto) Baso % (Auto) Neut # (Auto) Lymph # (Auto) [place] # (Auto) Eos # (Auto) Baso # (Auto) Immature Gran # (Auto) Absolute Nucleated RBC Immature Gran % Nucleated RBC % PT INR APTT Sodium Potassium Chloride Carbon Dioxide Anion Gap BUN Creatinine Estim Creat Clear Calc eGFR BUN/Creatinine Ratio Glucose Calculated Osmolality Calcium Corrected Calcium Magnesium Total Bilirubin AST ALT Alkaline Phosphatase Troponin I Total Protein Albumin Globulin Albumin/Globulin Ratio Free T4 Ur Collection Type Urine Color Urine Clarity Urine pH Ur Specific [place] Urine Protein Urine Glucose (UA) Urine Ketones Urine Blood Urine Nitrite Urine Bilirubin Urine Urobilinogen (Auto) Ur Leukocyte Esterase Urine RBC Urine WBC Ur Squamous Epith Cells Urine Bacteria Ur Culture Indicated? Urine Opiates Screen Negative Urine Fentanyl Screen Negative Ur Barbiturates Screen Negative U Amphetamin/Meth Scrn Negative U Benzodiazepines Scrn Negative U Cocaine Metab Screen Negative U Marijuana (THC) Screen Negative HCG (Qual) Quality Measures Quality Measures none Assessment & Plan Assessment Current Active Medications: Generic Name Dose Route Start Last Admin Trade Name Munir PRN Reason Stop Dose Admin Acetaminophen 650 mg 08/17/25 05:00 Acetaminophen 325 Mg Tablet PO 09/16/25 04:59 Q6H PRN Fever >100.4 or pain 1-3 Aspirin 81 mg 08/17/25 05:13 Aspirin Ec 81 Mg Tabec PO 09/16/25 05:12 PRN PRN Stroke Atorvastatin Calcium 40 mg 08/17/25 09:00 08/17/25 08:23 Atorvastatin Calcium 10 Mg Tablet PO 09/16/25 08:59 40 mg QDAY RAMONA Administration Clopidogrel Bisulfate 75 mg 08/17/25 09:00 08/17/25 08:24 Clopidogrel Bisulfate 75 Mg Tablet PO 09/16/25 08:59 75 mg QDAY RAMONA Administration Docusate Sodium 100 mg 08/17/25 09:00 08/17/25 08:24 Docusate Sod 100 Mg Capsule PO 09/16/25 08:59 100 mg QDAY RAMONA Administration Protocol Labetalol HCl 10 mg 08/17/25 05:31 Labetalol Inj 5 Mg/Ml Vial 20 Ml IVP 09/16/25 05:30 Q4HR PRN SBP>220 DBP >120 Losartan Potassium 50 mg 08/18/25 09:00 Losartan Potassium 25 Mg Tablet PO 09/17/25 08:59 QDAY RAMONA Ondansetron HCl 4 mg 08/17/25 05:05 Ondansetron Inj 2 Mg/Ml Inj 2 Ml IVP 09/16/25 05:04 Q6H PRN NAUSEA OR VOMITING Protocol Pantoprazole Sodium 40 mg 08/17/25 09:00 08/17/25 08:24 Pantoprazole 40 Mg Tablet PO 09/16/25 08:59 40 mg QDAY RAMONA Administration Plan 44yo female with past medical history migraines, and hypothyroidism presents to the ED for a chief complaint of right-sided weakness and numbness. Patient states her symptoms initially started on Saturday at 0230 when she woke up to use the restroom, reporting her symptoms eventually resolved. Patient states her symptoms returned tonight between [id number] and was concerned, so she came in for evaluation. Patient admitted for HTN emergency, migraine, and stroke r/o. #CVA-ruled out #Hypertensive emergency #Paresthesias #History of migraine headaches Patient presented with right sided numbness around 2-3 am 2 days ago the next day around 8-9pm exhibited similar symptoms however not just right sided but bilaterally. On arrival patient was noted to have SBP>190 and tachycardic She states her symptoms resolved when given BP meds in [facility] ED. CT head and CTA was negative for acute hemorrhage, mdiline shift or mass effect and negative for LVO MRI of brain was negative for any acute infarct. Echo with negative bubble study or PFO. - Recommend BP control, agree with losartan - Aspirin 81mg qday and statin therapy - Follow up with neurology within 2 weeks of discharge. - Follow up Lipid panel, A1C, TSH - Labetalol 10mg IVP Q4hr PRN for 220/120 #Hx of hypothyroidism -as per primary team Case discussed with my attending Dr. Hipolito Carl MD PGY-2 Attending Provider Attestation/Addendum I personally have seen and examined the patient at the bedside and agree with resident's findings, assessment and plan of care. Patient's clinical presentation is consistent with hypertensive urgency. She is neurologically afocal at present. Advised her to follow lifestyle changes the blood pressure under goal in addition to medication aspirin 81 along with statin prophylaxis.
[2025-08-18] VITALS (8 sets, daily range): BP systolic 130–164; BP diastolic 83–104; PULSE 78–102; RESP 17–19; TEMP 36.3–36.7; O2SAT 95–97
[2025-08-18] MEDS: ACETAMINOPHEN 325 MG TABLET 650 MG PO (05:04)
[2025-08-18 05:05] LABS: Basophils # (Auto) 0.1 Thou/mm3 (0.0-0.2); Basophils % (Auto) 1 % (0-2.5); Eosinophils # (Auto) 0.7 Thou/mm3 (0.0-0.5); Eosinophils % (Auto) 7 % (0-10); Hematocrit 37.4 % (36.0-46.0); Hemoglobin 11.2 g/dL (12.0-16.0); Immature Granulocytes Auto 0.04 Thou/mm3 (0.00-0.00); Lymphocytes # (Auto) 2.1 Thou/mm3 (1.0-4.8); Lymphocytes % (Auto) 20 % (10-50); Mean Corpuscular HGB Conc 29.9 g/dl (31.0-37.0); Mean Corpuscular Hemoglobin 20.5 pg (25.0-35.0); Mean Corpuscular Volume 68 fL (80-100); Monocytes # (Auto) 0.8 Thou/mm3 (0.0-0.8); Monocytes % (Auto) 7 % (0-12); Neutrophils # (Auto) 6.9 Thou/mm3 (1.8-7.7); Neutrophils % (Auto) 65 % (37-80); Nucleated Red Blood Cell # 0.00 Thou/mm3 (0.00-0.00); Nucleated Red Blood Cell % 0 /100 WBC (0); Platelet Count 353 Thou/mm3 (140-440); RDW Standard Deviation 40.6 fL (36.4-46.3); Red Blood Count 5.47 Miln/mm3 (4.00-5.20); White Blood Count 10.6 Thou/mm3 (3.6-11.0)
[2025-08-18 05:33] LABS: Path Review Blood Smear Sent to Pathologist
[2025-08-18 05:44] LABS: Alanine Aminotransferase 9 U/L (10-49); Albumin, Serum 4.0 gm/dL (3.5-5.0); Albumin/Globulin Ratio 1.3 (1.2-2.2); Alkaline Phosphatase 97 U/L (46-116); Anion Gap 11 (7-16); Aspartate Amino Transferase 13 U/L (0-34); BUN/Creatinine Ratio 11 Ratio (12-20); Bilirubin,Total 0.3 mg/dL (0.3-1.2); Blood Urea Nitrogen 9 mg/dL (9-23); Calcium 8.8 mg/dL (8.3-10.6); Calcium (Corrected) 8.8 mg/dL (8.5-10.1); Carbon Dioxide 24.5 mMol/L (20.0-31.0); Cardiac Risk Estimate 4.4 RATIO (3.7-5.6); Chloride 107 mMol/L (98-107); Cholesterol 180 mg/dL (132-200); Creatinine (Component) 0.8 mg/dL (0.6-1.3); Estimated Creatinine Clearance 101.1 mL/min (>60); Free T4 (Free Thyroxine) 0.91 ng/dL (0.89-1.76); Globulin 3.0 gm/dL (2.3-3.5); Glucose 103 mg/dL (74-106); HDL Cholesterol 41 mg/dL (40-60); LDL Cholesterol,Calculated 124 mg/dL (0-130); Magnesium 2.0 mg/dL (1.6-2.6); Osmolality,Calculated 281 (275-295); Phosphorous 2.7 mg/dL (2.4-5.1); Potassium 3.4 mMol/L (3.4-5.1); Sodium 142 mMol/L (136-145); Thyroid Stimulating Hormone 5.01 uIU/mL (0.55-4.78); Total Protein 7.0 gm/dL (5.7-8.2); Triglycerides 74 mg/dL (30-150); eGFR > 60 See Note
[2025-08-18 05:51] LABS: Glucose Estimated Average 131 mg/dL (80-131); Hemoglobin A1C 6.2 % Hgb (4.8-6.0)
[2025-08-18] MEDS: LOSARTAN POTASSIUM 25 MG TABLET 50 MG PO (08:23)
[2025-08-18] MEDS: PANTOPRAZOLE 40 MG TABLET PO (08:24)
[2025-08-18] MEDS: DOCUSATE SOD 100 MG CAPSULE PO (08:24)
[2025-08-18] MEDS: ATORVASTATIN CALCIUM 10 MG TABLET 40 MG PO (08:25)
[2025-08-18] MEDS: CLOPIDOGREL BISULFATE 75 MG TABLET PO (08:25)
[2025-08-18 08:43] LABS: Ferritin 15 ng/mL (7.3-270.7); Iron 17 mcg/dL (50-170); Percent Iron Saturation 5 % (20-55); Total Iron Binding Capacity 319 mcg/dL (250-425); Unsaturated Iron Binding 302 (225-295)
[2025-08-18] MEDS: hydrALAZINE INJ 20 MG/ML VIAL 10 MG IVP (10:51)
--- NOTE | 2025-08-18 11:07 | PC.SS ---
Follow up note: SS was present when Ana financial adviser was meeting with pt and family about applying for Medical. Pt is aware if she is not eligible for Medical a santhosh plan is also available. Pt is possible dc for today and will return home.
--- NOTE | 2025-08-18 11:08 | PC.NURSE ---
Pt reported to student that she felt that she had just had a seizure, I was called by the student to the room. pt alert and oreinted and speaking complaining of SOB vitals were HR 95, RR25, O2 100% temp 96.7 BP 151/120, made aware and came immediately to bedside
--- NOTE | 2025-08-18 19:18 | ESDS_ITS ---
<Statement entered by Rolando Ness MD - 08/19/25 14:32> Patient seen and examined at bedside. I discussed and supervised with the record label intern physician who took care of this patient. I personally saw and examined the patient. I agree with most of the assessment and plan. Plan of care discussed with attending Dr. Abdullahi. Rolando Ness MD PGY-2 Planned Discharge Date 08/18/25 DS: Providers Provider Date of admission: 08/17/25 05:00 Primary care physician: Inna Reddy PA-C Admitting Provider: Dipesh Jalloh MD Attending Provider on Admission: Shanthi Abdullahi MD Consults: 08/17/25 02:55 Consult to Neurology / Tele-Neurology Routine Comment: Consulting Provider: [facility] 08/17/25 05:07 Referral Physical Therapy Routine Comment: Physician Instructions: 08/17/25 05:09 Consult to Neurology / Tele-Neurology Stat Comment: Stroke r/o, migraine, HTN emergency Consulting Provider: Clark Mcmillan 08/17/25 05:12 Referral Speech Therapy Routine Comment: Attending Provider on DC: Shanthi Abdullahi MD Discharging Provider: Thomas Sanchez DO DS: Diagnosis Problem List Completed Was Problem List Reviewed/Reconciled?: Yes Hospital Course Hospital Course Hospital course: 44yo female with past medical history migraines, and hypothyroidism presents to the ED for a chief complaint of right-sided weakness and numbness. Patient states her symptoms initially started on Saturday at 0230 when she woke up to use the restroom, reporting her symptoms eventually resolved. Patient states her symptoms returned tonight between 3609-0820 and was concerned, so she came in for evaluation. Patient admitted for HTN emergency, migraine, and stroke r/o.? Patient presented with elevated BP 190/131 HR 125 with signs of end organ damage of blood in urine. UA colorless, pH 7.5?ur?sp?gravity >1.035 blood +3, leukocyte esterase + RBC 685 WBC 8 Sq epithelial 7. Teleneurology was consulted, patient was started on clopidogrel, aspirin loading doses, and atorvastatin and placed on permissive hypertension, with IV labetalol for BP >220/120. CT head was negative for acute hemorrhage, mass effect, or midline shift. Brain MRI showed no acute infarct. No carotid stenosis, LVO's. No demyelinating disease. CTA head/neck was negative for significant neck arterial stenosis, LVO's or thrombi. EKG showed normal sinus rhythm. Echo (TTE) showed normal LV and RV size and function (EF 60 to 65%) trace tricuspid valve regurgitation. Negative bubble study. 1000 mL after IV labetalol in the ED patient's BP downtrended to 177/96. She was started on losartan 50 mg daily which stabilized the blood pressure 25% below the presenting values. To further decrease BP into normal range hydrochlorothiazide 12.5 mg daily was added to losartan, by the afternoon BP less than 150 systolic and stable. Patient did not at any point during her current hospitalization develop any neurologic abnormalities, paresthesias, tinnitus, blurry vision, epistaxis, chest pain, shortness of breath. She kept having morning headaches which were responsive to Tylenol 650 mg. She was noted to have 3+ blood in her urine and U RBC 685, which she attributed to her ongoing menstruation. At the time of discharge, patient is medically stable and deemed safe to return to his/her previous state of living. Admission diagnosis: #Hypertensive emergency #Paresthesia #hx of hypothyroidism #hx of Migraines Discharge instructions: You were admitted to the hospital for stroke workup, your MRI was negative, echocardiogram showed no acute heart problems and we will be discharging you on 4 medications - You will be taking losartan?HCTZ combination pill and Amlodipine to control your blood pressure, keep a log of your blood pressure and follow-up with your primary care physician to titrate your medication outpatient. - Please take atorvastatin daily for your high cholesterol per neurologist recommendations -Please take aspirin daily to lower your risk of stroke. -We are also sending iron tablets which you can take every other day as you have iron deficiency anemia Your hemoglobin A1c is 6.2, you are prediabetic follow-up with your primary care physician and recheck your A1c in 3 to 6 months Follow-up with your primary care physician within 1 week Return to emergency department if your symptoms worsen This case was discussed with my attending physician, Dr. Abdullahi, and senior resident, Dr Ness. Thomas Sanchez, DO PGY I Disclaimer: This note was dictated by speech recognition. Minor errors in stranding machine operator helper may be present due to voice recognition software. Status at Discharge Functional status at discharge: independent ambulation Overall status at discharge: patient is back to baseline Time Spent with Patient Time attestation: Total time spent providing and/or coordinating discharge services: 35 minutes Time spent: Greater than 30 minutes Exam Vital Signs Temp Pulse Resp BP Pulse Ox O2 Del Method 97.9 F 81 17 148/90 H 97 Room Air 08/18/25 11:52 08/18/25 13:40 08/18/25 11:52 08/18/25 13:40 08/18/25 11:52 08/18/25 11:52 Narrative Exam General: Alert and oriented x3, No apparent distress. Skin: Intact, Warm, no rashes. HEENT: Normocephalic, Atraumatic. Normal neck range of motion, Supple. Trachea midline. Respiratory: Lungs are clear to auscultation. Breath sounds are equal bilaterally with good, symmetric chest expansion. Cardiovascular: RRR, normal S1, S2, No murmurs. Distal pulses 2+ Abdomen: Abdomen non-distended, without erythema, or lesions. Normotensive bowel sounds x4. Percussion tympanic. Palpation soft, nontender in all four quadrants. No organomagely. Absent rigidity, guarding, or rebound. Musculoskeletal/Extremities: No erythema, swelling, tenderness of any joints. No edema of BLE. DP pulses +2/3 b/l. Full active ROM of all four extremities. Neurologic: NEURO: Oriented x3, cranial nerves II to XII grossly intact. Cerebellar exam ([id number], [id number]) intact. Muscle strength 5/5 on UE and LE b/l, Moves extremities x4. Sensation intact to gross touch along C6-T1 and L2-S1 dermatomes. No focal neurologic deficits noted Psych: Thoughts linear and responses appropriate. Discharge Plan Plan Patient Disposition: HOME (Self Care) Patient condition on transfer: Stable Care Plan Goals: You were admitted to the hospital for stroke workup, your MRI was negative, echocardiogram showed no acute heart problems and we will be discharging you on 4 medications - You will be taking losartan?HCTZ combination pill and Amlodipine to control your blood pressure, keep a log of your blood pressure and follow-up with your primary care physician to titrate your medication outpatient. - Please take atorvastatin daily for your high cholesterol per neurologist recommendations -Please take aspirin daily to lower your risk of stroke. -We are also sending iron tablets which you can take every other day as you have iron deficiency anemia Your hemoglobin A1c is 6.2, you are prediabetic follow-up with your primary care physician and recheck your A1c in 3 to 6 months Follow-up with your primary care physician within 1 week Return to emergency department if your symptoms worsen Prescriptions/Referrals Prescriptions/Med Rec: New aspirin 81 mg Tablet,Delayed Release (Dr/Ec) 81 mg PO QDAY 30 Days Qty: 30 3RF atorvastatin [Lipitor] 40 mg tablet 40 mg PO QDAY 30 Days Qty: 30 0RF ferrous sulfate 325 mg (65 mg iron) tablet 325 mg PO Q OTHER DAY 30 Days Qty: 15 3RF losartan-hydrochlorothiazide 50-12.5 mg tablet 1 tab PO QDAY Qty: 30 3RF amlodipine 5 mg tablet 5 mg PO QDAY Qty: 30 3RF Referrals: Inna Reddy PA-C [Primary Care Provider] Patient/Caregiver Discharge Instructions Discharge Activity: as per physical therapy Education Materials: Hypertension and Kidney Disease, Hypertension Dc Print Language: [place] Stand Alone Forms: [employer] Award Info., Patient Portal Info Letter Discharge Order Discharge Orders: Discharge (Routine); Ordered 08/18/25 Ordered By: [place] Quality Discharge Quality Measures VTE prophylaxis Attestestation MD Attestation I have seen and examined the patient. I was physically present for the astudillo portions of the services provided including history, physical exam, diagnosis, treatment plans and orders. I agree with assessment and plan of care as documented by residents. Even though this this note was carefully revised there may still be minor errors in stranding machine operator helper due to voice recognition software. Shanthi Abdullahi MD
== END 2025-08-18 14:00 | disposition home or self-care (01) | DRG 305 ==
LOC: SERX 05:25 → SERHOLD 05:44 → S3NX 10:40
PROVIDERS: Physician Assistant; Admitting Provider Internal Medicine; Emergency Provider Emergency Medicine; PCP Physician Assistant; Visit Provider Student in an Organized Health Care Education/Training Program
DX: I16.1 Hypertensive emergency (principal); R53.1 Weakness; G43.909 Migraine, unspecified, not intractable, without status migrainosus; E03.9 Hypothyroidism, unspecified; R20.2 Paresthesia of skin; I10 Essential (primary) hypertension; R29.810 Facial weakness; Z79.02 Long term (current) use of antithrombotics/antiplatelets; Z79.82 Long term (current) use of aspirin; Z79.899 Other long term (current) drug therapy
CPT/HCPCS: 36415; 70450; 70496; 70498; 70553; 71045; 80053; 80061; 80307; 81001; 82728; 83036; 83540; 83550; 83735; 84100; 84439; 84443; 84484; 84703; 85025; 85610; 85730; 92610; 93005; 93306; 96365; 96366; 96375; 97162; 99285; A4649; A9577; J0360; J1200; J3475; J3490; Q9967; A9270; J1920